=== PATIENT | male | born 1975 | race Caucasian/White ===

== ENCOUNTER → 2017-04-15 08:10 | Outpatient (CLI) | payer BC, SELFPAY ==
[2017-04-15 09:31] LABS: Alanine Aminotransferase 59 U/L (12-78); Albumin Level 4.6 gm/dL (3.4-5.0); Alkaline Phosphatase 76 U/L (46-116); Aspartate Amino Transferase 26 U/L (15-37); Bilirubin,Direct 0.1 mg/dL (0.0-0.2); Bilirubin,Total 0.5 mg/dL (0.2-1.0); Chol/HDL Ratio 2.2 (1-3.5); Cholesterol 100 mg/dL (140-200); HDL Cholesterol 45 mg/dL (27-67); LDL Cholesterol 48 mg/dL (0-130); Total Protein,Serum 7.8 gm/dL (6.4-8.2); Triglycerides 33 mg/dL (30-200); VLDL Cholesterol 7 mg/dL (0-40)
== END ==
PROVIDERS: PCP Family Medicine; Visit Provider Internal Medicine
DX: I45.10 Unspecified right bundle-branch block (principal); E78.5 Hyperlipidemia, unspecified; I10 Essential (primary) hypertension; I25.10 Atherosclerotic heart disease of native coronary artery without angina pectoris
CPT/HCPCS: 36415; 80061; 80076

== ENCOUNTER 2017-04-20 18:25 | Emergency (ER) | payer BC, SELFPAY ==
[2017-04-20 19:00] VITALS: BP 111/66; PULSE 120; RESP 18; TEMP 38; O2SAT 96; BMI 24.1
[2017-04-20 19:07] LABS: UTC Influenza A Antigen Positive (Negative); UTC Influenza B Antigen Negative (Negative); UTC Strep Screen (Rapid) Negative (Negative)
--- NOTE | 2017-04-20 19:38 | HMH.EDUTC ---
[facility] [place] Clinical Impression: Influenza Disposition: Home, Self-Care Condition on Discharge: Good Instructions: Influenza, DI for Fever (Symptom) -- Adult Additional Instructions: ? Start Tamiflu today if you are going to take it. Discussed risk and possible benefits. ? Lots of rest ? Increase Fluids water, Gatorade, powerade, pedialyte,if /toddler/child ? Alternate Tylenol and / or ibuprofen as discussed for fever, aches, chills x 24 hours without medication for symptoms ? Follow up IMMEDIATELY for new or worsening Symptoms OR no noticeable improvement over the next 48-72 hours, 911 for difficulty or breathing ? You or your child area contagious until no fever, aches, chills for 24 hours with medication for symptoms Prescriptions: Dextromethorphan Polistirex [Delsym] 10 ml PO Q12 PRN #200 clayton.er.12h PRN Reason: Cough Oseltamivir Phosphate [Tamiflu 75mg Capsule] 75 mg PO BID #10 cap Referrals: Jared Thibodeaux MD [Primary Care Provider] - Forms: Work/School Release Time of Disposition: 19:51 Medical Decision Making - Medical Records Medical records reviewed: Yes: I reviewed the patient's medical records. Vital Signs: 04/20/17 19:00 Temperature 100.4 F H Temperature Source Temporal Artery Scan Pulse Rate [Right] 120 H Respiratory Rate 18 Blood Pressure [Right Arm] 111/66 Blood Pressure Mean [Right Arm] 81 Blood Pressure Source [Right Arm] Automatic Cuff Blood Pressure Position [Right Arm] Sitting 02 Sat by Pulse Oximetry 96 Oxygen Delivery Method Room Air - Lab Data Lab Results 04/20/17 19:06: Influenza Type A Ag Positive A, Influenza Type B Ag Negative, Strep Scn Rapid Clinic Negative Orders (Tests/Meds): ORDERS Category Date Time Status Strep Screen Confirmation Stat Micro 04/20/17 19:06 Received - Rodriguez Inquiry Pt receiving controlled substance: No Rodriguez was queried for this patient: No [facility] [place] - General Stated complaint: Poss Sinus Infection Mode of Arrival: Ambulatory Source of Information: Patient Limitations: No Limitations Description of Symptoms (Recalled from Triage Doc. by RN): COUGH, CONGESTION, BODY ACHES 2 DAYS HEENT Symptoms (Recalled from RN notes): Yes Resp Symptoms (Recalled from RN notes): No Skin Symptoms (Recalled from RN notes): No MS Symptoms (Recalled from RN notes): No Functional Status (Recalled from RN notes): N - History of Present Illness Provider Complaint: Patient complaining of flu like symptoms that has continued to get worse since yesterday States that he has been having cough, congestion sore throat and body aches along with chills and over all not feeling well State that he was worried that may have the flu so she came in to get checked out - Related Data Home Medications Medication Instructions Recorded Confirmed Lisinopril [Lisinopril 10mg Tab] 20 mg PO DAILY 04/20/17 04/20/17 Metoprolol Tartrate [Lopressor 50 mg PO BID 04/20/17 04/20/17 50mg tablet] Previous Rx's Medication Instructions Recorded Dextromethorphan Polistirex 10 ml PO Q12 PRN #200 clayton.er.12h 04/20/17 [Delsym] Oseltamivir Phosphate [Tamiflu 75 mg PO BID #10 cap 04/20/17 75mg Capsule] Allergies Allergy/AdvReac Type Severity Reaction Status Date / Time No Known Allergies Allergy Verified 04/20/17 19:05 - Worker's Comp Is this a Worker's Comp case?: No [facility] History I have reviewed the patient's past medical history: Yes - *Social History Alcohol Intake: never - Psychiatric History Expresses thoughts of harming self/others: None Suicide Plan Description: No Plan ROS Obtained: Yes All systems reviewed & no additional complaints - Constitutional Constitutional: Reports body ache, Reports chills, Reports fever(s) - ENT Ears, Nose, Mouth, and Throat: Reports sore throat Physical Exam - General General appearance: alert, in no apparent distress - Expanded ENT Exam Comment: Throat red, i
--- NOTE | 2017-04-20 19:41 | ED_ITS ---
[facility] [place] Clinical Impression: Influenza Disposition: Home, Self-Care Condition on Discharge: Good Instructions: Influenza, DI for Fever (Symptom) -- Adult Additional Instructions: ? Start Tamiflu today if you are going to take it. Discussed risk and possible benefits. ? Lots of rest ? Increase Fluids water, Gatorade, powerade, pedialyte,if /toddler/child ? Alternate Tylenol and / or ibuprofen as discussed for fever, aches, chills x 24 hours without medication for symptoms ? Follow up IMMEDIATELY for new or worsening Symptoms OR no noticeable improvement over the next 48-72 hours, 911 for difficulty or breathing ? You or your child area contagious until no fever, aches, chills for 24 hours with medication for symptoms Prescriptions: Dextromethorphan Polistirex [Delsym] 10 ml PO Q12 PRN #200 clayton.er.12h PRN Reason: Cough Oseltamivir Phosphate [Tamiflu 75mg Capsule] 75 mg PO BID #10 cap Referrals: Jared Thibodeaux MD [Primary Care Provider] - Forms: Work/School Release Time of Disposition: 19:51 Medical Decision Making - Medical Records Medical records reviewed: Yes: I reviewed the patient's medical records. Vital Signs: 04/20/17 19:00 Temperature 100.4 F H Temperature Source Temporal Artery Scan Pulse Rate [Right] 120 H Respiratory Rate 18 Blood Pressure [Right Arm] 111/66 Blood Pressure Mean [Right Arm] 81 Blood Pressure Source [Right Arm] Automatic Cuff Blood Pressure Position [Right Arm] Sitting 02 Sat by Pulse Oximetry 96 Oxygen Delivery Method Room Air - Lab Data Lab Results 04/20/17 19:06: Influenza Type A Ag Positive A, Influenza Type B Ag Negative, Strep Scn Rapid Clinic Negative Orders (Tests/Meds): ORDERS Category Date Time Status Strep Screen Confirmation Stat Micro 04/20/17 19:06 Received - Rodriguez Inquiry Pt receiving controlled substance: No Rodriguez was queried for this patient: No [facility] [place] HPI - General Stated complaint: Poss Sinus Infection Mode of Arrival: Ambulatory Source of Information: Patient Limitations: No Limitations Description of Symptoms (Recalled from Triage Doc. by RN): COUGH, CONGESTION, BODY ACHES 2 DAYS HEENT Symptoms (Recalled from RN notes): Yes Resp Symptoms (Recalled from RN notes): No Skin Symptoms (Recalled from RN notes): No MS Symptoms (Recalled from RN notes): No Functional Status (Recalled from RN notes): N - History of Present Illness Provider Complaint: Patient complaining of flu like symptoms that has continued to get worse since yesterday States that he has been having cough, congestion sore throat and body aches along with chills and over all not feeling well State that he was worried that may have the flu so she came in to get checked out - Related Data Home Medications Medication Instructions Recorded Confirmed Lisinopril [Lisinopril 10mg Tab] 20 mg PO DAILY 04/20/17 04/20/17 Metoprolol Tartrate [Lopressor 50 mg PO BID 04/20/17 04/20/17 50mg tablet] Previous Rx's Medication Instructions Recorded Dextromethorphan Polistirex 10 ml PO Q12 PRN #200 clayton.er.12h 04/20/17 [Delsym] Oseltamivir Phosphate [Tamiflu 75 mg PO BID #10 cap 04/20/17 75mg Capsule] Allergies Allergy/AdvReac Type Severity Reaction Status Date / Time
== END 2017-04-20 20:03 | disposition home or self-care (01) ==
PROVIDERS: Emergency Provider Nurse Practitioner; Family Provider Family Medicine; PCP Family Medicine
DX: J10.1 Influenza due to other identified influenza virus with other respiratory manifestations (principal)
CPT/HCPCS: 87804; 87880; 99201

== ENCOUNTER → 2019-01-09 13:09 | Outpatient (CLI) | payer BC, SELFPAY ==
[2019-01-09 16:10] LABS: Alanine Aminotransferase 58 U/L (12-78); Albumin Level 4.3 gm/dL (3.4-5.0); Alkaline Phosphatase 66 U/L (46-116); Aspartate Amino Transferase 29 U/L (15-37); Bilirubin,Direct 0.1 mg/dL (0.0-0.2); Bilirubin,Indirect 0.4 mg/dL (0.0-0.9); Bilirubin,Total 0.5 mg/dL (0.2-1.0); Chol/HDL Ratio 2.7 (1-3.5); Cholesterol 130 mg/dL (140-200); Creatine Kinase 150 U/L (39-308); HDL Cholesterol 49 mg/dL (27-67); LDL Cholesterol 59 mg/dL (0-130); Total Protein,Serum 7.6 gm/dL (6.4-8.2); Triglycerides 112 mg/dL (30-200); VLDL Cholesterol 22 mg/dL (0-40)
== END ==
PROVIDERS: Visit Provider Physician Assistant
DX: E78.49 Other hyperlipidemia (principal); I25.10 Atherosclerotic heart disease of native coronary artery without angina pectoris; I11.9 Hypertensive heart disease without heart failure; I45.10 Unspecified right bundle-branch block
CPT/HCPCS: 36415; 80061; 80076; 82550

== ENCOUNTER → 2019-05-23 16:52 | Outpatient (CLI) | payer BC, SELFPAY ==
--- NOTE | 2019-05-23 | XR_ITS ---
PROCEDURE: XR KNEE RT 3V CLINICAL INDICATION: Right knee pain COMPARISON: No exams were available for comparison FINDINGS: No fracture or dislocation. No lytic or blastic change. There is normal mineralization. The joint spaces are well-preserved. No significant degenerative/arthritic changes. No erosive changes evident. Other findings:None. IMPRESSION: No acute findings. Dictated by: Lloyd Her MD 05/24/2019 05:20 Electronically signed by Lloyd Her MD in [place] 05/24/2019 05:20
== END ==
PROVIDERS: PCP Family Medicine; Visit Provider Physician Assistant
DX: M25.561 Pain in right knee (principal)
CPT/HCPCS: 73562

== ENCOUNTER → 2019-06-11 09:50 | Outpatient (CLI) | payer BC, SELFPAY ==
--- NOTE | 2019-06-11 09:54 | XR_ITS ---
PROCEDURE: XR KNEE RT 4V CLINICAL INDICATION: right knee pain COMPARISON: XR KNEE RT 3V from 05/23/2019 FINDINGS: No fracture or dislocation. No lytic or blastic change. There is normal mineralization. The joint spaces are well-preserved. No significant degenerative/arthritic changes. No erosive changes evident. Other findings:None. IMPRESSION: Negative right knee Dictated by: Lloyd Her MD 06/11/2019 10:59 Electronically signed by Lloyd Her MD in [place] 06/11/2019 10:59
== END ==
PROVIDERS: PCP Family Medicine; Visit Provider Orthopaedic Surgery
DX: M25.561 Pain in right knee (principal)
CPT/HCPCS: 73564

== ENCOUNTER → 2019-11-06 08:59 | Outpatient (CLI) | payer BC, SELFPAY ==
[2019-11-06 09:16] LABS: Basophils # 0.1 K/mm3 (0-0.2); Basophils % 1.3 % (0.1-2.0); Eosinophils # 0.3 K/mm3 (0.0-0.4); Eosinophils % 4.9 % (0.1-12.0); Lymphocytes % 44.8 % (10-50); Mean Corpuscular HGB Conc 33.3 g/dL (31.8-35.4); Mean Corpuscular Hemoglobin 30.2 pg (27.0-31.2); Mean Corpuscular Volume 90.5 fl (80-94); Mean Platelet Volume 7.9 fl (7.4-10.4); Monocytes # 0.4 K/mm3 (0.1-1.0); Monocytes % 6.4 % (1.7-9.3); Neutrophils # 2.8 K/mm3 (1.8-7.8); Neutrophils % 42.6 % (37.0-80.0); Platelet Count 235 K/mm3 (142-424); Red Blood Count 5.31 M/mm3 (4.60-6.20); Red Cell Distribution Width 12.6 % (11.5-17.5); White Blood Count 6.7 K/mm3 (4.8-10.8)
[2019-11-06 09:37] LABS: Chloride 103 mmol/L (98-107); Potassium 4.2 mmoL/L (3.5-5.1); Sodium 142 mmol/L (136-145)
[2019-11-06 09:39] LABS: Blood Urea Nitrogen 17 mg/dl (9-20); Estimated Glomerular Filt Rate 105 ml/min (>60); GFR (African American) 126 ML/MIN (>60)
[2019-11-06 09:40] LABS: Alanine Aminotransferase 62 U/L (12-78); Albumin Level 4.5 g/dl (3.5-5.0); Alkaline Phosphatase 73 U/L (38-126); Anion Gap 14.2 mEq/L (5-15); Aspartate Amino Transferase 48 U/L (17-59); Bilirubin,Indirect 0.6 mg/dL (0.0-0.9); Bilirubin,Total 0.6 mg/dl (0.2-1.3); Bilirubin,Unconjugated 0.6 mg/dL (0.0-1.1); Calcium 9.8 mg/dl (8.4-10.2); Carbon Dioxide 29 mmol/L (22.0-30.0); Chol/HDL Ratio 2.4 (1-3.5); Cholesterol 130 mg/dl (140-200); Glucose 114 mg/dl (74-100); HDL Cholesterol 54 mg/dl (40-60); Total Protein,Serum 7.4 g/dl (6.3-8.2); Triglycerides 69 mg/dl (30-150); VLDL Cholesterol 14 mg/dL (0-40)
[2019-11-06 09:51] LABS: Direct LDL Cholesterol 71.81 mg/dL (100-129)
[2019-11-06 09:56] LABS: Free T4 (Free Thyroxine) 0.84 ng/dl (0.78-2.19)
[2019-11-06 10:11] LABS: Thyroid Stimulating Hormone 1.57 uIU/mL (0.465-4.68)
== END ==
PROVIDERS: Visit Provider Urology
DX: E78.5 Hyperlipidemia, unspecified (principal); I11.9 Hypertensive heart disease without heart failure; I25.10 Atherosclerotic heart disease of native coronary artery without angina pectoris; I45.10 Unspecified right bundle-branch block; R07.9 Chest pain, unspecified; R42 Dizziness and giddiness
CPT/HCPCS: 36415; 80048; 80061; 80076; 84439; 84443; 85025

== ENCOUNTER → 2020-04-09 15:19 | Outpatient (CLI) | payer BC, SELFPAY ==
[2020-04-09 15:51] LABS: Basophils # 0.1 K/mm3 (0-0.2); Basophils % 1.9 % (0.1-2.0); Eosinophils % 0.8 % (0.1-12.0); Hematocrit 49.3 % (42.0-52.0); Hemoglobin 16.6 g/dL (14.1-18.0); Lymphocytes # 1.6 K/mm3 (0.7-4.5); Lymphocytes % 29.4 % (10-50); Mean Corpuscular HGB Conc 33.6 g/dL (31.8-35.4); Mean Corpuscular Hemoglobin 30.1 pg (27.0-31.2); Mean Corpuscular Volume 89.7 fl (80-94); Mean Platelet Volume 7.8 fl (7.4-10.4); Monocytes # 0.9 K/mm3 (0.1-1.0); Monocytes % 15.9 % (1.7-9.3); Neutrophils # 2.8 K/mm3 (1.8-7.8); Neutrophils % 52.1 % (37.0-80.0); Platelet Count 258 K/mm3 (142-424); Red Cell Distribution Width 12.8 % (11.5-17.5); White Blood Count 5.4 K/mm3 (4.8-10.8)
[2020-04-11 09:56] LABS: Covid-19 Nasal PCR Sendout P&C POSITIVE
== END ==
PROVIDERS: PCP Family Medicine; Visit Provider Nurse Practitioner Family
DX: U07.1 COVID-19 (principal)
CPT/HCPCS: 36415; 85025; U0004

== ENCOUNTER → 2020-04-17 15:18 | Outpatient (CLI) | payer BC, SELFPAY ==
--- NOTE | 2020-04-17 15:38 | XR_ITS ---
PROCEDURE: XR CHEST PORTABLE CLINICAL HISTORY: COVID OUTPATIENT COMPARISON: CR CXR1 CHEST-PORTABLE from 10/20/2014 CR CXR2V XR chest 2V from 05/23/2018 FINDINGS: The cardiomediastinal silhouette and pulmonary vascularity are within normal limits. Subtle patchy ground-glass infiltrate is present over the lower lung zones on both sides. No acute bony abnormalities. IMPRESSION: Subtle patchy ground-glass infiltrates overlying both lower lobe suspicious for Covid19 pneumonia Dictated by: Lloyd Her MD 04/17/2020 18:00 Lloyd Her MD in [place] 04/17/2020 18:00
[2020-04-17 16:05] LABS: Basophils % 0.6 % (0.1-2.0); Eosinophils % 0.1 % (0.1-12.0); Hematocrit 48.9 % (42.0-52.0); Hemoglobin 16.5 g/dL (14.1-18.0); Lymphocytes % 34.5 % (10-50); Mean Corpuscular HGB Conc 33.7 g/dL (31.8-35.4); Mean Corpuscular Hemoglobin 29.7 pg (27.0-31.2); Mean Corpuscular Volume 88.2 fl (80-94); Mean Platelet Volume 8.2 fl (7.4-10.4); Monocytes # 0.4 K/mm3 (0.1-1.0); Monocytes % 7.7 % (1.7-9.3); Neutrophils # 3.3 K/mm3 (1.8-7.8); Neutrophils % 57.1 % (37.0-80.0); Platelet Count 203 K/mm3 (142-424); Red Blood Count 5.54 M/mm3 (4.60-6.20); Red Cell Distribution Width 12.8 % (11.5-17.5); White Blood Count 5.7 K/mm3 (4.8-10.8)
== END ==
PROVIDERS: PCP Family Medicine; Visit Provider Physician Assistant
DX: Z20.822 Contact with and (suspected) exposure to COVID-19 (principal); U07.1 COVID-19
CPT/HCPCS: 36415; 71045; 85025

== ENCOUNTER → 2020-05-06 09:28 | Outpatient (CLI) | payer BC, SELFPAY ==
[2020-05-06 10:12] LABS: Chloride 105 mmol/L (98-107); Potassium 4.3 mmoL/L (3.5-5.1); Sodium 141 mmol/L (136-145)
[2020-05-06 10:14] LABS: Bilirubin,Unconjugated 1.1 mg/dL (0.0-1.1); Blood Urea Nitrogen 16 mg/dl (9-20); Estimated Glomerular Filt Rate 91 ml/min (>60); GFR (African American) 110 ML/MIN (>60)
[2020-05-06 10:15] LABS: Alanine Aminotransferase 64 U/L (12-78); Albumin Level 4.6 g/dl (3.5-5.0); Alkaline Phosphatase 83 U/L (38-126); Anion Gap 10.3 mEq/L (5-15); Aspartate Amino Transferase 39 U/L (17-59); Bilirubin,Indirect 1.1 mg/dL (0.0-0.9); Bilirubin,Total 1.1 mg/dl (0.2-1.3); Calcium 9.8 mg/dl (8.4-10.2); Carbon Dioxide 30 mmol/L (22.0-30.0); Chol/HDL Ratio 3.1 (1-3.5); Cholesterol 176 mg/dl (140-200); Glucose 113 mg/dl (74-100); HDL Cholesterol 56 mg/dl (40-60); Total Protein,Serum 7.8 g/dl (6.3-8.2); Triglycerides 130 mg/dl (30-150); VLDL Cholesterol 26 mg/dL (0-40)
[2020-05-06 10:28] LABS: Direct LDL Cholesterol 94.32 mg/dL (100-129)
== END ==
PROVIDERS: Visit Provider Physician Assistant
DX: E78.5 Hyperlipidemia, unspecified (principal); I11.9 Hypertensive heart disease without heart failure; Z79.899 Other long term (current) drug therapy
CPT/HCPCS: 36415; 80048; 80061; 80076

== ENCOUNTER → 2021-03-26 13:16 | Outpatient (CLI) | payer BC, SELFPAY ==
[2021-03-26 13:55] LABS: Basophils # 0.1 K/mm3 (0-0.2); Basophils % 1.9 % (0.1-2.0); Eosinophils # 0.2 K/mm3 (0.0-0.4); Eosinophils % 2.4 % (0.1-12.0); Hematocrit 49.1 % (42.0-52.0); Hemoglobin 15.6 g/dL (14.1-18.0); Lymphocytes # 2.7 K/mm3 (0.7-4.5); Lymphocytes % 39.4 % (10-50); Mean Corpuscular HGB Conc 31.7 g/dL (31.8-35.4); Mean Corpuscular Hemoglobin 29.6 pg (27.0-31.2); Mean Corpuscular Volume 93.4 fl (80-94); Mean Platelet Volume 8.2 fl (7.4-10.4); Monocytes # 0.5 K/mm3 (0.1-1.0); Monocytes % 6.9 % (1.7-9.3); Neutrophils # 3.4 K/mm3 (1.8-7.8); Neutrophils % 49.5 % (37.0-80.0); Platelet Count 312 K/mm3 (142-424); Red Blood Count 5.26 M/mm3 (4.60-6.20); Red Cell Distribution Width 12.9 % (11.5-17.5); White Blood Count 6.9 K/mm3 (4.8-10.8)
[2021-03-26 14:31] LABS: Alanine Aminotransferase 40 U/L (12-78); Alkaline Phosphatase 67 U/L (38-126); Anion Gap 15.4 mEq/L (5-15); Aspartate Amino Transferase 36 U/L (17-59); Bilirubin,Direct 0.2 mg/dl (0.0-0.4); Bilirubin,Indirect 0.6 mg/dL (0.0-0.9); Bilirubin,Total 0.8 mg/dl (0.2-1.3); Bilirubin,Unconjugated 0.6 mg/dL (0.0-1.1); Blood Urea Nitrogen 24 mg/dl (9-20); Carbon Dioxide 29 mmol/L (22.0-30.0); Chloride 101 mmol/L (98-107); Chol/HDL Ratio 2.6 (1-3.5); Cholesterol 120 mg/dl (140-200); Estimated Glomerular Filt Rate 90 ml/min (>60); GFR (African American) 109 ML/MIN (>60); Glucose 118 mg/dl (74-100); HDL Cholesterol 47 mg/dl (40-60); Potassium 4.4 mmoL/L (3.5-5.1); Sodium 141 mmol/L (136-145); Total Protein,Serum 7.5 g/dl (6.3-8.2); Triglycerides 101 mg/dl (30-150); VLDL Cholesterol 20 mg/dL (0-40)
[2021-03-26 14:42] LABS: Direct LDL Cholesterol 58.78 mg/dL (100-129)
[2021-03-26 14:47] LABS: Free T4 (Free Thyroxine) 0.95 ng/dl (0.78-2.19)
[2021-03-26 15:02] LABS: Thyroid Stimulating Hormone 1.12 uIU/mL (0.465-4.68)
== END ==
PROVIDERS: Visit Provider Nurse Practitioner Family
DX: Z01.812 Encounter for preprocedural laboratory examination (principal); Z11.52 Encounter for screening for COVID-19; I11.9 Hypertensive heart disease without heart failure; I25.10 Atherosclerotic heart disease of native coronary artery without angina pectoris; E78.49 Other hyperlipidemia
CPT/HCPCS: 36415; 80048; 80061; 80076; 84439; 84443; 85025; C9803; U0003; U0005

== ENCOUNTER 2021-03-27 09:53 | Day surgery (SDC) | payer BC, SELFPAY ==
[2021-03-27] VITALS (12 sets, daily range): BP systolic 91–142; BP diastolic 49–90; PULSE 52–72; RESP 16–19; TEMP 36.8; O2SAT 92–98; BMI 23.8
--- NOTE | 2021-03-27 07:13 | IR_ITS ---
APPROVED REPORT Patient Location: Outpatient PROCEDURES Left heart catheterization Left ventriculogram Selective coronary angiogram INDICATION Known coronary artery disease, Angina pectoris, History of coronary stenting Informed consent was obtained prior to the procedure. COMPLICATIONS None Estimated Blood Loss: Less than 10 ML TECHNIQUE One percent lidocaine used to anesthetize the right anterior aspect of the wrist. The right radial artery was accessed via the Seldinger technique. A 6 German sheath was placed in the right radial artery. 2.5 mg of verapamil, 800 mcg of nitroglycerin, 1mg Lidocaine and 5000 U Heparin were given through the arterial sheath. The Dazopa catheter was also used to perform left heart catheterization, left ventriculogram and selective coronary angiogram. At the end of the procedure the sheath was removed good hemostasis was achieved using Traclet band, patient was transferred to the postop holding area in stable condition. ANGIOGRAPHIC RESULTS The left main artery Normal The left anterior descending artery Has a stent in the proximal segment which is widely patent free of in-stent restenosis with excellent proximal distal transitioning. The remaining LAD is widely patent The circumflex artery Nondominant normal The right coronary artery Large dominant with a mid vessel 20% stenosis The SCHAFFER ventriculogram reveals Normal 65% The left ventricular end-diastolic pressure 10 mmHg IMPRESSION Widely patent proximal LAD stent Mild nonflow limiting mid dominant right coronary artery stenosis Normal ejection fraction with normal LVEDP PLAN 1. Evaluation of noncardiac symptoms 2. Continued standard therapy for ischemic heart disease Electronically signed by : Eddie Boyer MD 03/27/2021 14:03:42
--- NOTE | 2021-03-27 12:59 | SUR.PREOP ---
Pt updated on delay of procedure d/t emergency heart cath from patient on the floor
== END 2021-03-27 16:48 | disposition home or self-care (01) ==
LOC: CATHLAB 09:55
PROVIDERS: PCP Family Medicine; Visit Provider Internal Medicine
DX: I25.118 Atherosclerotic heart disease of native coronary artery with other forms of angina pectoris (principal); I45.10 Unspecified right bundle-branch block; Z95.5 Presence of coronary angioplasty implant and graft; I11.9 Hypertensive heart disease without heart failure; Z79.899 Other long term (current) drug therapy
CPT/HCPCS: 93458; 99152; C1725; C1769; J1644; Q9967

== ENCOUNTER 2021-06-28 09:37 | Emergency (ER) | payer BC, SELFPAY ==
[2021-06-28 10:29] VITALS: BP 122/78; PULSE 81; RESP 20; TEMP 36.7; O2SAT 97; BMI 25.1
--- NOTE | 2021-06-28 10:33 | HMH.EDUTC ---
[facility] [place]: Conjunctivitis, left eye Qualifiers: Conjunctivitis type: unspecified Qualified Code(s): H10.9 - Unspecified conjunctivitis Disposition: Home, Self-Care Condition on Discharge: Good Instructions: How to Instill Eye Drops, DI for Conjunctivitis Additional Instructions: Use the eye drops as directed. Follow up with your regular doctor. Follow up with an eye doctor. GO TO THE ER FOR ANY WORSENING SYMPTOMS Prescriptions: Ibuprofen [Ibuprofen 800mg Tablet] 800 mg PO Q8HP PRN #30 tab PRN Reason: Moderate Pain Transmission Status: Received by [facility] #[id number] Sulfacetamide Sodium [Bleph-10] 1 drp EYE-BOTH Q3H 7 Days #1 ml Transmission Status: Received by [facility] #[id number] Referrals: Jared Thibodeaux MD [Primary Care Provider] - Time of Disposition: 10:48 Medical Decision Making - Medical Records Medical records reviewed: No: I reviewed the patient's medical records. - Rodriguez Inquiry Pt receiving controlled substance: No Vital Signs: 06/28/21 10:29 06/28/21 10:54 Temperature 98.1 F 98.1 F Temperature Source Oral Pulse Rate 81 Pulse Rate [Left] 81 Respiratory Rate 20 20 Blood Pressure 122/78 Blood Pressure [Right Arm] 122/78 Blood Pressure Mean [Right Arm] 92 02 Sat by Pulse Oximetry 97 Orders (Tests/Meds): ED MEDICATIONS Discontinued Medications Generic Name Dose Route Start Last Admin Trade Name Freq PRN Reason Stop Dose Admin Eye Irrigation Solution 120 ml 06/28/21 10:44 06/28/21 10:47 Eye Wash Irrigation Soln 118ml Bottle OP 06/28/21 10:45 40 ml ONCE ONE Administration Tetracaine HCl 0 ml 06/28/21 10:44 06/28/21 10:47 Tetracaine 0.5% Opth Romy 15ml OP 06/28/21 10:45 2 drops ONCE ONE Administration [facility] [place] - General Stated complaint: lt eye pain 06/26 Time Seen by Provider: 06/28/21 10:33 Mode of Arrival: Ambulatory Source of Information: Patient Limitations: No Limitations Description of Symptoms (Recalled from Triage Doc. by RN): pt c/o swelling and irritation in his L eye x2 days. HEENT Symptoms (Recalled from RN notes): Yes Resp Symptoms (Recalled from RN notes): No Skin Symptoms (Recalled from RN notes): No MS Symptoms (Recalled from RN notes): No Functional Status (Recalled from RN notes): wnl - History of Present Illness Provider Complaint: He states that for the past 2 days, he has had left eye irritation. He was changing his son's brakes on his car before this started, but he was wearing eye protection and did not feel anything get into his eye. His tetanus immunization is up to date. - Related Data Home Medications Medication Instructions Recorded Confirmed aspirin 81 mg tablet,delayed 81 mg PO DAILY tab 07/04/17 04/06/21 release Atorvastatin Calcium [Lipitor 40mg See Rx Instructions .ROUTE .COMPLEX 03/27/21 04/06/21 Tab] lisinopriL [Lisinopril] 5 mg PO DAILY 03/27/21 04/06/21 Previous Rx's Medication Instructions Recorded metoprolol succinate 50 mg 50 mg PO DAILY #90 tab 04/14/21 tablet,extended release 24 hr Ibuprofen [Ibuprofen 800mg 800 mg PO Q8HP PRN #30 tab 06/28/21 Tablet] Sulfacetamide Sodium [Bleph-10] 1 drp EYE-BOTH Q3H 7 Days #1 ml 06/28/21 Allergies Allergy/AdvReac Type Severity Reaction Status Date / Time No Known Allergies Allergy Verified 04/06/21 09:42 - Worker's Comp Is this a Worker's Comp case?: No [facility] History - Hepatitis A Screen Drug use history?: No High risk sexual behaviors?: No History of sexually transmitted infection?: No Currently employed?: No Childcare worker?: No Do you have indoor plumbing?: Yes Do you have electricity?: Yes Attestation statement:: This patient has been screened for Hepatitis A risk factors. I have reviewed the patient's past medical history: Yes Medical History: Reports:: Anxiety, Coronary Artery Disease, Gastroesophageal Reflux Disease(GERD), Hyp
[2021-06-28 10:54] VITALS: BP 122/78; PULSE 81; RESP 20; TEMP 36.7
== END 2021-06-28 10:55 | disposition home or self-care (01) ==
PROVIDERS: Emergency Provider Nurse Practitioner Family; PCP Family Medicine
DX: H10.9 Unspecified conjunctivitis (principal); R94.31 Abnormal electrocardiogram [ECG] [EKG]; R42 Dizziness and giddiness; R07.9 Chest pain, unspecified; R00.2 Palpitations; Z79.82 Long term (current) use of aspirin; Z79.899 Other long term (current) drug therapy
CPT/HCPCS: 99213; G0463

== ENCOUNTER 2023-11-02 10:44 | Day surgery (SDC) | payer BC, SELFPAY ==
[2023-11-02] VITALS (12 sets, daily range): BP systolic 88–147; BP diastolic 45–79; PULSE 55–64; RESP 16–20; O2SAT 95–100; BMI 23.8
--- NOTE | 2023-11-02 07:19 | IR_ITS ---
APPROVED REPORT Patient Location: Outpatient Retail Advertising Sales Manager: MONAE Lira RT (R) PROCEDURES Left heart catheterization Left ventriculogram Selective coronary angiogram INDICATION History of myocardial infarction, History of coronary artery stenting, Informed consent was obtained prior to the procedure. COMPLICATIONS None Estimated Blood Loss: Less than 10 mls TECHNIQUE One percent lidocaine used to anesthetize the right anterior aspect of the wrist. The right radial artery was accessed via the Seldinger technique. A 6 Kyrgyz sheath was placed in the right radial artery. 2.5 mg of Verapamil, 800 mcg of nitroglycerin, 1mg Lidocaine and 5000 U Heparin were given through the arterial sheath. The papa catheter was also used to perform left heart catheterization, left ventriculogram and selective coronary angiogram. At the end of the procedure the sheath was removed good hemostasis was achieved using Traclet band, patient was transferred to the postop holding area in stable condition. ANGIOGRAPHIC RESULTS The left main artery Normal The left anterior descending artery Has a proximal 10% stenosis immediately proximal to the proximal LAD stent which is widely patent free of in-stent restenosis with excellent distal transitioning. The remaining LAD is widely patent The circumflex artery Normal The right coronary artery Dominant normal The SCHAFFER ventriculogram reveals Slightly reduced to 50% with mild anterior wall hypokinesis The left ventricular end-diastolic pressure 10 to 15 mmHg IMPRESSION Widely patent coronary arteries as described above Slightly reduced ejection fraction with mild regional wall motion abnormality Normal LVEDP PLAN 1. Medical management with aggressive risk factor modification Electronically signed by : Eddie Boyer MD 11/02/2023 12:17:56
[2023-11-02 11:15] LABS: Basophils # 0.2 K/mm3 (0-0.2); Basophils % 2.7 % (0.1-2.0); Eosinophils # 0.1 K/mm3 (0.0-0.4); Hematocrit 46.4 % (42.0-52.0); Lymphocytes # 2.9 K/mm3 (0.7-4.5); Lymphocytes % 49.3 % (10-50); Mean Corpuscular HGB Conc 32.3 g/dL (31.8-35.4); Mean Corpuscular Hemoglobin 30.2 pg (27.0-31.2); Mean Corpuscular Volume 93.5 fl (80-94); Mean Platelet Volume 7.7 fl (7.4-10.4); Monocytes # 0.5 K/mm3 (0.1-1.0); Monocytes % 8.3 % (1.7-9.3); Neutrophils # 2.2 K/mm3 (1.8-7.8); Neutrophils % 37.6 % (37.0-80.0); Platelet Count 266 K/mm3 (142-424); Red Blood Count 4.97 M/mm3 (4.60-6.20); Red Cell Distribution Width 13.6 % (11.5-17.5); White Blood Count 5.8 K/mm3 (4.8-10.8)
[2023-11-02 11:16] LABS: Chloride 105 mmol/L (98-107); Potassium 4.1 mmoL/L (3.5-5.1); Sodium 139 mmol/L (136-145)
[2023-11-02 11:19] LABS: Anion Gap 7.1 mEq/L (5-15); Blood Urea Nitrogen 18 mg/dl (9-20); Calcium 9.1 mg/dl (8.4-10.2); Carbon Dioxide 31 mmol/L (22.0-30.0); Creatinine Clearance Estimated 82 mL/min (50-200); Estimated Glomerular Filt Rate 64 ml/min (>60); GFR (African American) 78 ML/MIN (>60); Glucose 99 mg/dl (74-100)
[2023-11-02] MEDS: LIDOCAINE 1% 10ML MDV 20 ML IJ (11:26)
[2023-11-02] MEDS: HEPARIN 1,000 UNITS/ML 10ML VIAL (CATH LAB) 10000 UNIT IV (11:27)
[2023-11-02] MEDS: NITROGLYCERIN 800MCG/8ML SYR (CATH LAB) 800 MCG IA (11:27)
[2023-11-02] MEDS: 0.9 % SODIUM CHLORIDE 500 ML 25 ML IV (11:27)
[2023-11-02] MEDS: VERAPAMIL 2.5MG/ML 2ML VIAL 2.5 MG IV (11:27)
[2023-11-02] MEDS: HEPARIN 1,000 UNITS/500ML NS (CATH LAB) 3000 UNIT IV (11:27)
[2023-11-02] MEDS: diphenhydrAMINE 50MG/ML VIAL 50 MG IV (11:28)
[2023-11-02] MEDS: MIDAZOLAM HCL 1MG/1ML 5ML VIAL 1 MG IV ×2 (11:57→12:11)
[2023-11-02] MEDS: FENTANYL 100MCG/2ML VIAL 50 MCG IV (11:57)
[2023-11-02] MEDS: FENTANYL 100MCG/2ML VIAL 25 MCG IV (12:11)
[2023-11-02] MEDS: IOPAMIDOL-370 (76%);100ML BOTTLE 50 ML IV (13:25)
== END 2023-11-02 15:10 | disposition home or self-care (01) ==
PROVIDERS: PCP Family Medicine; Visit Provider Internal Medicine
DX: I25.118 Atherosclerotic heart disease of native coronary artery with other forms of angina pectoris (principal); Z95.5 Presence of coronary angioplasty implant and graft; I25.2 Old myocardial infarction; Z79.899 Other long term (current) drug therapy; R94.31 Abnormal electrocardiogram [ECG] [EKG]; I11.9 Hypertensive heart disease without heart failure; E78.5 Hyperlipidemia, unspecified
CPT/HCPCS: 36415; 80048; 85025; 93458; 99152; C1725; C1769; J1200; J1644; J2250; J3010; Q9967

== ENCOUNTER 2023-11-24 13:00 | Outpatient (CLI) | payer BC, SELFPAY ==
--- NOTE | 2023-11-24 13:08 | CA_ITS ---
APPROVED REPORT EXAM: Comprehensive 2D, Doppler, and color-flow Echocardiogram [employer] Delivery Driver: Zandra Bonilla RDCS Ht: 5 ft 11 in Wt: 174lbs BSA: 1.99 BP: 128/69 mmHg Indications: CP,ABN EKG,DIZZINESS,PALPS M-Mode Dimensions RVDd 1.89 cm (0.9-2.6) LA Diam 3.31 cm (1.9-4.0) LVDd 4.90 cm (3.5-5.7) LVDs 3.94 cm (3.5-5.7) IVSd 0.84 cm (0.6-1.1) PWd 0.68 cm (0.6-1.1) EF (Teich) 40.20% FS 19.60% EDV (Teich) 112.80 mL TAPSE 2.38 (<1.7) ESV (Teich) 67.50 mL LV Diastology E Decel Time 233 (160-240 msec) E/A Ratio 1.1 Mitral Valve MV E Max Andrea. 67.0 (40-130 cm/s) MV A Velocity 59.0 (40-130 cm/s) E/A Ratio 1.15 MV PHT 68.0 ms Left Ventricle The left ventricle is normal size. The left ventricular systolic function is low normal. There is normal left ventricular wall thickness. There is normal LV segmental wall motion. The left ventricular diastolic function is normal. LVEF is 50%. Right Ventricle The right ventricle is normal size. The right ventricular systolic function is normal. Atria The left atrium size is normal. The right atrium size is normal. There is no Doppler evidence of interatrial shunt. Aortic Valve The aortic valve opens well. There is no aortic valvular stenosis. No aortic regurgitation is present. Mitral Valve The mitral valve is normal in structure. No evidence of mitral valve stenosis. Trace mitral regurgitation. Tricuspid Valve The tricuspid valve leaflets are thin and pliable. Trace tricuspid regurgitation. There is insufficient TR jet to estimate RVSP. Pulmonic Valve The pulmonary valve is normal in structure. Trace pulmonic regurgitation. Great Vessels The aortic root is normal in size. The ascending aorta is not well-visualized. IVC is normal in size and collapses >50% with inspiration. Pericardium There is no pericardial effusion. Other Information Study Quality: Adequate Conclusion Low normal LV systolic function (LVEF 50%). No significant valvular stenosis or regurgitation. In the setting of young age, presence of symptoms with low normal LV systolic function, further evaluation with cardiac MRI (cardiomyopathy protocol) to better evaluate LVEF is suggested. Electronically signed by : Kristina Damon MD 11/30/2023 11:23:50
== END 2023-11-24 23:59 | disposition home or self-care (01) ==
LOC: RT 13:01
PROVIDERS: PCP Family Medicine; Visit Provider Nurse Practitioner
DX: I11.9 Hypertensive heart disease without heart failure (principal); I25.10 Atherosclerotic heart disease of native coronary artery without angina pectoris; E78.2 Mixed hyperlipidemia; R94.31 Abnormal electrocardiogram [ECG] [EKG]; I45.10 Unspecified right bundle-branch block
CPT/HCPCS: 93306

== ENCOUNTER 2024-07-02 09:53 | Outpatient (CLI) | payer BC, SELFPAY ==
[2024-07-02 10:12] LABS: Basophils # 0.1 K/mm3 (0-0.2); Basophils % 1.2 % (0.1-2.0); Eosinophils # 0.2 K/mm3 (0.0-0.4); Eosinophils % 3.2 % (0.1-12.0); Hematocrit 51.9 % (42.0-52.0); Hemoglobin 16.6 g/dL (14.1-18.0); Lymphocytes # 2.2 K/mm3 (0.7-4.5); Mean Corpuscular Hemoglobin 28.6 pg (27.0-31.2); Mean Corpuscular Volume 89.3 fl (80-94); Mean Platelet Volume 9.1 fl (7.4-10.4); Monocytes # 0.7 K/mm3 (0.1-1.0); Monocytes % 9.7 % (1.7-9.3); Neutrophils # 4.3 K/mm3 (1.8-7.8); Neutrophils % 56.6 % (37.0-80.0); Nucleated Red Blood Cells # 0 10^3/uL; Nucleated Red Blood Cells % 0 %; Platelet Count 341 K/mm3 (142-424); Red Blood Count 5.81 M/mm3 (4.60-6.20); Red Cell Distribution Width 14.5 % (11.5-17.5); Red Cell Distribution Width-SD 47.1 fL; White Blood Count 7.5 K/mm3 (4.8-10.8)
[2024-07-02 10:34] LABS: Alanine Aminotransferase 40 U/L (12-78); Albumin Level 4.3 g/dl (3.5-5.0); Alkaline Phosphatase 68 U/L (38-126); Anion Gap 14.8 mEq/L (5-15); Aspartate Amino Transferase 41 U/L (17-59); Bilirubin,Direct 0.1 mg/dl (0.0-0.4); Bilirubin,Indirect 0.7 mg/dL (0.0-0.9); Bilirubin,Total 0.8 mg/dl (0.2-1.3); Bilirubin,Unconjugated 0.7 mg/dL (0.0-1.1); Blood Urea Nitrogen 15 mg/dl (9-20); Calcium 9.3 mg/dl (8.4-10.2); Carbon Dioxide 32 mmol/L (22.0-30.0); Chloride 101 mmol/L (98-107); Chol/HDL Ratio 2.2 (1-3.5); Cholesterol 95 mg/dl (140-200); Estimated Glomerular Filt Rate 79 ml/min (>60); GFR (African American) 96 ML/MIN (>60); Glucose 109 mg/dl (74-100); HDL Cholesterol 44 mg/dl (40-60); Magnesium 2.1 mg/dl (1.6-2.3); Potassium 4.8 mmoL/L (3.5-5.1); Sodium 143 mmol/L (136-145); Total Protein,Serum 7.6 g/dl (6.3-8.2); Triglycerides 41 mg/dl (30-150); VLDL Cholesterol 8 mg/dL (0-40)
[2024-07-02 10:46] LABS: Direct LDL Cholesterol 36.31 mg/dL (100-129)
[2024-07-02 10:51] LABS: Free T4 (Free Thyroxine) 0.94 ng/dl (0.78-2.19)
[2024-07-02 11:05] LABS: Thyroid Stimulating Hormone 0.02 uIU/mL (0.465-4.68)
== END 2024-07-02 23:59 | disposition home or self-care (01) ==
LOC: LAB 09:54
PROVIDERS: PCP Family Medicine; Visit Provider Nurse Practitioner Family
DX: I42.8 Other cardiomyopathies (principal); E78.2 Mixed hyperlipidemia; I11.9 Hypertensive heart disease without heart failure; I25.10 Atherosclerotic heart disease of native coronary artery without angina pectoris
CPT/HCPCS: 36415; 80048; 80061; 80076; 83735; 84439; 84443; 85025

== ENCOUNTER 2024-09-16 18:24 | Emergency (ER) | payer BC, SELFPAY ==
[2024-09-16 18:29] VITALS: BP 148/87; PULSE 72; O2SAT 100
[2024-09-16 18:32] VITALS: BP 148/87; PULSE 74; RESP 16; TEMP 36.6; O2SAT 99; BMI 24.4
--- OUTSIDE RECORDS SUMMARY | 2024-09-16 18:39 | XMS_ITS | Data Portability ---
Author Organization [facility] Address [address] [place] [address] Assessment No assessment recorded. Plan of Treatment Reminders Order Date Submit Date Provider Last Modified By Organization Details Last Modified Time Details Appointments None record ed. Lab None record ed. Referral None record ed. Procedures None record ed. Surgeries None record ed. Imaging None record ed. Medication Orders None record ed. Patient TargetsNo targets recorded. Patient InstructionsNo instructions recorded. Reason for Referral None Reported. Medical Equipment None Reported. Medications Name Sig Start Date Stop Date Status Note LastModified by Organization Details LastModified Time atorvastatin 40 mg tablet TAKE 1 TABLET BY MOUTH DAILY FOR CHOLESTEROL active Not Available Not Available Not Available ibuprofen 800 mg tablet TAKE 1 TABLET BY MOUTH EVERY 8 HOURS NEEDED FOR MODERATE PAIN active Not Available Not Available No t Available metoprolol succinate ER 50 mg tablet,exten ded release 24 hr TAKE 1 TABLET BY MOUTH DAILY FOR HIGH BLOOD PRESSURE active Not Available Not Available No t Available doxycycline monohydrate 100 mg tablet TAKE 1 TABLET BY MOUTH TWICE DAILY active Not Available Not Available No t Available sulfacetamid e sodium 10 % eye drops INSTILL 1 DROP IN BOTH EYES EVERY 3 HOURS FOR 7 DAYS active Not Available Not Available No t Available lisinopril 5 mg tablet TAKE 1 TABLET BY MOUTH DAILY active Not Available Not Available Not Available neomycin 3.5 mg/g-polymyx in B 10,000 unit/g-dexam eth 0.1 % eye oint APPLY SMALL AMOUNT ON BOTH EYELIDS UP TO TWICE DAILY active Not Available Not Available No t Available Sutab 1.479-0.188- 0.225 gram tablet As Directed active Not Available Not Available Not Available Vitals None Recorded Social History None recorded. Functional Status None recorded. Mental Status None recorded. Family History Nothing Reported. Medical History No medical history recorded. Past Encounters Encounter ID Performer Location Encounter Start Date Encounter Closed Date Diagnosis/Indication Diagnosis SNOMED-CT Code Diagnosis ICD10 Code Diagnosis Note [id number] [facility] [address] 06/21/2016 21:36:42 06/21/2016 21:36:42 [id number] LYNN FULTON MD SURGERY SCHEDULE [address] [place] [address] 10/20/2021 13:21:45 10/20/2021 13:29:19 Health Concerns Section Related Observation LastModified by Organization Detai ls LastModified Time None Recorded Concern Status LastModified by Organization Details LastModified Time None Recorded Advance Directives Directive None Recorded Payers Insurance Date Sequence Insurance Name Policy Number Policy Simental Covered Member ID Simental Member ID Guarantor Name 10/19/2021 1 [employer] [id number] Craig Akers [id number] Craig Akers
--- NOTE | 2024-09-16 18:59 | HMH.EDGENADL ---
Discharge Plan Disposition Patient Disposition: Home, Self-Care Prescriptions Prescriptions: No Action aspirin 81 mg tablet,delayed release (DR/EC) 81 mg PO DAILY magnesium 200 mg tablet 200 mg PO DAILY nitroglycerin [Nitrostat] 0.4 mg tablet, sublingual 0.4 mg sublingual Q5M Qty: 30 2RF Rx Instructions: do not exceed 3 doses per episode losartan 50 mg tablet 50 mg PO DAILY Qty: 30 5RF metoprolol succinate 50 mg tablet extended release 24 hr 50 mg PO DAILY Qty: 30 5RF ibuprofen 200 mg capsule 200 mg PO Q6H PRN multivitamin Tablet 1 tab PO DAILY atorvastatin 40 mg tablet 40 mg PO DAILY Qty: 90 3RF Referrals Follow up/Referrals: Kp Mccrary MD [Primary Care Provider, Medical] - See instructions Activity Restrictions/Add. Instructions Additional Instructions/Restrictions: Follow-up with your family doctor regarding this visit to the emergency department. If you start having redness, swelling, drainage, or signs of infection, return to the emergency department or your family doctor for evaluation. Clinical Impressions Clinical Impression: Fish hook in thumb Instructions Patient Instructions: DI for Skin Abscess Print Language Print Language: Icelandic Discharge ED Provider: Keyur Rios General Adult HPI General Chief complaint: Skin/Abscess/Foreign Body Stated complaint: fishing hook in rt thumb Time Seen by Provider: 09/16/24 18:26 Mode of Arrival: Ambulatory Source of Information: Patient Description of Symptoms (Recalled from ER Triage Doc. by RN): Patient states that about an hour and a half ago he got a fish hook stuck in his right thumb. History of Present Illness HPI narrative: Please note that above description of symptoms, in this electronic medical record under categorization of recalled from ER triage doctor by RN are reflective of an initial nursing assessment, however, is not reflective of my full history and physical exam that was personally taken and clarified. Consequentially, this preceding description of symptoms, which may include the patient's categorized chief complaint in the EMR, do not reflect my personal clinical impression, and the ultimate description of history of present illness and patient stated complaints should be deferred to this section of the note. Unless stated otherwise or congruent with this section of the note, additional signs, symptoms, or incongruence should be interpreted as inaccurate with my clinical impression. Related Data Home Medications ?Medication ?Instructions ?Recorded ?Confirmed aspirin 81 mg tablet,delayed 81 mg PO DAILY antiplatelet 07/04/17 07/02/24 release ibuprofen 200 mg capsule 200 mg PO Q6H PRN 12/28/22 07/02/24 multivitamin 1 tab PO DAILY 04/08/23 07/02/24 magnesium 200 mg tablet 200 mg PO DAILY 10/20/23 07/02/24 Previous Rx's ?Medication ?Instructions ?Recorded nitroglycerin 0.4 mg sublingual 0.4 mg sublingual Q5M #30 tabs 10/20/23 tablet (Nitrostat) atorvastatin 40 mg tablet 40 mg PO DAILY Cholesterol #90 tabs 03/20/24 losartan 50 mg tablet 50 mg PO DAILY #30 tabs 07/02/24 metoprolol succinate 50 mg 50 mg PO DAILY High blood pressure 07/02/24 tablet,extended release 24 hr #30 tabs Allergies Allergy/AdvReac Type Severity Reaction Status Date / Time No Known Allergies Allergy Verified 09/16/24 18:36 [facility] Disclaimer: The information contained in this section may have been updated after the patient was seen, as this information can be updated by other users. Medical History (Updated 09/16/24 @ 19:12 by Keyur Rios MD) Cough due to CEFERINO inhibitor Plantar fascial fibromatosis of left foot Abnormal EKG Dizziness Palpitations Chest pain Social History Smoking Status: Never smoker alcohol intake: never substance use type: denies use current occupational status: employed Travel in the last 8 weeks?: Inside the [place] household members: spouse housing: house current occupational exposures/hazards: No Have you lived/traveled outside US in past 30 days?: No Contact w/someone who lives/traveled outside US past 30 days?: No Exposure to someone with infectious disease in past 14 days?: No Do you have a fever (greater than 100.4 F or 38 C)?: No Have you tested positive for COVID-19?: No Exposed to someone with COVID-19 in past 14 days?: No Do you have a sore throat?: No Do you have a cough?: No Do you have any weakness?: No Do you have any diarrhea?: No Are you experiencing any unusual bleeding?: No Do you have any muscle aches/pain?: No Do you have any abdominal pain?: No Are you experiencing loss of taste or smell?: No Other Medical History Have you received the Flu Vaccine for this season: Yes Have you received the Pneumonia Vaccine: No ROS Obtained: Yes All systems reviewed & no additional complaints except as documented Physical Exam General General appearance: alert Head Head exam: atraumatic and normocephalic Eye Eye exam: Present normal appearance, PERRL and EOMI Neck Neck exam: Present normal inspection, full ROM and trachea midline Respiratory Respiratory exam: Absent respiratory distress, wheezes, stridor, accessory muscle use or prolonged expiratory phase Cardiovascular Cardiovascular exam: Present other (Pulses equal symmetric in upper and lower extremities) Abdominal Exam Abdominal exam: Present soft; Absent distention, tenderness or pulsatile mass Extremities Exam Extremities exam: Absent edema Neurological Exam Neurological exam: Present alert, oriented X3 and CN II-XII intact; Absent motor sensory deficit Skin Skin exam: Present warm and dry; Absent diaphoresis or erythema Medical Decision Making Medical Records Medical records reviewed: Yes I reviewed the patient's medical records. Screening: Per USPSTF and CDC recommendations, given the prevalence of disease in our region, it is our hospital?s policy to screen for HIV and viral Hepatitis for all patients aged 18 and over and those with ongoing risk factors. Rodriguez Inquiry Pt receiving controlled substance: No Rodriguez was queried for this patient: No Vital Signs: 09/16/24 18:29 09/16/24 18:32 Temperature 97.8 F Temperature Source Oral Pulse Rate 72 Pulse Rate [Right Brachial] 74 Respiratory Rate 16 Blood Pressure 148/87 H Blood Pressure [Right Arm] 148/87 H Blood Pressure Mean [Right Arm] 107 Blood Pressure Source [Right Arm] Automatic Cuff Blood Pressure Position [Right Arm] Sitting 02 Sat by Pulse Oximetry 100 99 Oxygen Delivery Method Room Air Room Air Orders (Tests/Meds): ED MEDICATIONS Discontinued Medications Generic Name Dose Route Start Last Admin Trade Name Freq PRN Reason Stop Dose Admin Lidocaine HCl 20 ml 09/16/24 18:33 Lidocaine 1% 20ml Mdv IJ 09/16/24 18:34 ONCE ONE Tetanus/Reduced Diphtheria/Acell Pertussis 0.5 ml 09/16/24 18:33 Tet/Diphth/Pert-Adult 0.5ml Syringe IM 09/16/24 18:34 .ONCE ONE Medical Decision Narrative: 48-year-old male presenting with fishhook. He states that he was fishing just before this, got a fishing hook in his right thumb. Does not member his last tetanus shot. Came in for further evaluation after trying to take it out himself. He cleaned out pretty well went home showered, etc. Mildly tender, throbbing. History obtained with patient. On exam, there is a 3 prong fishhook embedded in the distal phalanx soft tissues of his right thumb past the level of the shila. Patient was anesthetized with 1% lidocaine without epinephrine approximately 5 cc. Cutdown technique creating incision of 0.25 cm down to the hook. Hook was rotated using hemostats and removed manually. No evidence of broken pieces of metal, etc. Washed out extensively afterward. Patient given updated tetanus shot and discharged in hemodynamically stable condition after dressing wound. Editor Magazine disclaimer Much of this encounter note is an electronic manager registration spoken language to printed text. Electronic manager registration of the spoken language may permit errors. Although I have reviewed the note, some errors may still exist. Critical Care Critical Care Time Critical Care Time: No
[2024-09-16] MEDS: TET/DIPHTH/PERT-ADULT 0.5ML SYRINGE 0.5 ML IM (19:13)
[2024-09-16] MEDS: LIDOCAINE 1% 20ML MDV 20 ML IJ (19:13)
[2024-09-16 19:19] VITALS: BP 125/74; PULSE 75; RESP 16; TEMP 36.6; O2SAT 100
== END 2024-09-16 19:20 | disposition home or self-care (01) ==
PROVIDERS: Emergency Provider Emergency Medicine; PCP Family Medicine
DX: S60.351A Superficial foreign body of right thumb, initial encounter (principal); W45.8XXA Other foreign body or object entering through skin, initial encounter; Z23 Encounter for immunization
CPT/HCPCS: 10120; 90471; 90715; 99283; J2003

== ENCOUNTER 2025-03-12 15:11 | Outpatient (CLI) | payer BC, SELFPAY ==
--- OUTSIDE RECORDS SUMMARY | 2025-03-01 10:15 | XMS_ITS ---
Author Organization [facility] Address [address] [facility] 36 [facility] [address] [place] [id number] Care Team Providers Care Senior Analytic Consultant Name Role Phone Irma Thibodeaux Primary Care Provider [phone] Gilles Ernst Unavailable [phone] Allergies No Known Allergies REASON FOR VISIT rt knee pain Medications Medication SIG (Take, Route, Frequency, Duration) Notes Start Date End Date Status Lisinopril 5 MG 1 tab(s) orally once a day Not-Taking Atorvastatin Calcium 40 MG 1 tab(s) orally once a day Active Losartan Potassium 50 MG 1 tablet Orally Once a day Active Aspirin 81 MG 1 tablet Orally Once a day; Duration: 30 day(s) Active Metoprolol Succinate ER 50 MG 1 tab(s) orally once a day Active Sildenafil Citrate 20 MG 1 to 5 tab(s) o rally once daily as needed 01/18/2022 Not-Taking ProAir Digihaler 108 (90 Base) MCG/ACT 1-2 puff(s) inhaled every 6 hours, prn 04/18/2020 Not-Taking Ondansetron HCl 4 MG 1 tablet Orally jeanne ry 8 hours as needed 07/06/2023 Not-Taking Vital Signs Weight 182 lbs 03/01/2025 Blood pressure systolic 130 mm Hg 03/01/20 25 Blood pressure diastolic 70 mm Hg 025 Heart Rate 72 /min 03/01/2025 Height 71 in 03/01/2025 BMI 25.38 kg/m2 03/01/2025 Encounters Encounter Location Date Provider Diagnosis [facility] [address] [facility] [address] [place] [id number] 03/01/2025 Gilles Ernst Acute pain of right knee M25.561 and Effusion, right knee M25.461 Assessments Encounter Date Diagnosis (ICD Code) Assessment Notes Treatment Notes Treatment Clinical Notes Section Notes 03/01/2025 Acute pain of right knee (ICD-10 - M25.561) Rest, ice, compression and elevation OTC non aspirin NSAID of choice 03/01/2025 Effusion, right knee (ICD-10 - M25.461) Plan Of Treatment Treatment Notes Assessment Notes Acute pain of right knee Rest, ice, comp ression and elevation OTC non aspirin NSAID of choice Next Appt Details Follow Up: via phone to repo rt progress, Reason: Progress Notes * Craig AKERSDOB: [birth year] (49 yo M)Acc No.[id number]:03/01/2025 Progress Notes Patient: Craig ERVIN Provider: Digna Ernst M.D. :1975 A ge:49 Y S ex:Male Date:03/01/2025 Address:[address] [place] [address] , [facility], [id number] Pcp:Irma Thibodeaux Subjective: * Chief Complaints: * 1 . Rt knee pain. * HPI: K nee/Li: 49 year old male presents with c/o knee pain r ight side. Pt states it started two weeks ago. Pt states it is swollen and makes a popping sound. Pt states it feels like a sharp stabbing pain behind the knee. * Medical History: H ypertension, Dx: 2015, H Pylori, s/p treatment, Low back pain, Lumbar Degenerative Disc Disease, Coronary artery stent (Oct 2016), Covid Positive - Mar 31, 2020. * Surgical History: v asectomy . * Hospitalization/Major Diagno stic Procedure: H ER - chest pains 10/19-05/05, [facility] ER-congestion 06/04. * Family History: F ather: alive. M other: alive. P aternal Grand Father: alive. P aternal Grand Mother: alive. M aternal Grand Father: . M aternal Grand Mother: . 2 sister(s) - healthy. 1 son(s) , 1 daughter(s) - healthy. . * Social History: C URRENT TOBACCO USE: No S moking Status: Patient does NOT smoke. C affeine: yes, frequency:. Exercise: yes. Marital Status: . Past smoking status: yes, Smoking status: Patient does smoke. Recreational drug use: Past use:. Alcohol: Yes, Type: , Frequency: ,Years: , Determination:. * Medications: T aking Losartan Potassium 50 MG Tablet 1 tablet Orally Once a day , Taking Aspirin 81 MG Tablet Delayed Release 1 tablet Orally Once a day , Taking Metoprolol Succinate ER 50 MG Tablet Extended Release 24 Hour 1 tab(s) orally once a day , Taking Atorvastatin Calcium 40 MG Tablet 1 tab(s) orally once a day , Not-Taking Lisinopril 5 MG Tablet 1 tab(s) orally once a day , Not-Taking Ondansetron HCl 4 MG Tablet 1 tablet Orally every 8 hours as needed , Not-Taking Sildenafil Citrate 20 MG Tablet 1 to 5 tab(s) orally once daily as needed , Not-Taking ProAir Digihaler 108 (90 Base) MCG/ACT Aerosol Powder Breath Activated 1-2 puff(s) inhaled every 6 hours, prn , Medication List reviewed and reconciled with the patient * Allergies: N .K.D.A. Objective: * Vitals: W t: 182, Temp: 98.0, BP: 130/70, HR: 72, Nurse: STEFANI, Ht: 71, BMI:25.38. * Examination: G eneral Examination: General Appearance: N AD. K nee / Li: Knee: r ight. I nspection: e ffusion: mild. P alpation: n o tenderness on joint lines or collateral ligaments. C ollateral ligaments: i ntact medially and laterally. R caden of motion: n ormal flexion and extension. M cmurray: n egative. Assessment: * Assessment: 1. A cute pain of right knee - M25.561 (Primary) 2 . E ffusion, right knee - M25.461 Plan: * Treatment: * Follow Up: v ia phone to report progress * Images: Billing Information: * Visit Code: 73028 Office Visit, Est Pt., Level 3. * Procedure Codes: * Electronic signature of Renea Ernst MD on 03/12/2025 at 03:13 PM EST Sign off status: Pending * Provider: Digna Ernst M.D. Date: 05/02/2024 Generated for John ramey/Laura/Mauriceransmitting on: 05/13/2024 03:13 PM EST History and Physical Notes * HPI (History of Present Illness) Category Sub-Category Detail Notes Category Not es Knee/Li knee pain right side. Pt s tates it started two weeks ago. Pt states it is swollen and makes a popping sound. Pt states it feels like a sharp stabbing pain behind the knee Examination Category Sub-Category Detail Notes Category Not es General Examination General Appearance: NAD Knee / Li Brigitte: negative Palpation: no tenderness on abiodun nt lines or collateral ligaments Knee: right Inspection: effusion: mild Range of motion: normal flexion and e xtension Collateral ligaments: intact medially an d laterally
--- OUTSIDE RECORDS SUMMARY | 2025-03-12 04:13 | XMS_ITS ---
Author Organization [facility] Address [address] [facility] 36 [facility] [address] [place] [id number] Care Team Providers Care Ortho Rn Name Role Phone Irma Thibodeaux Primary Care Provider REASON FOR VISIT Needs order (LM) Encounters Encounter Location Date Provider Diagnosis [facility] [address] [facility] [address] [place] [phone] 03/12/2025 Irma Thibodeaux Pain, joint, knee, right M25.561 Assessments Encounter Date Diagnosis (ICD Code) Assessment Notes Treatment Notes Treatment Clinical Notes Section Notes 03/12/2025 Pain, joint, knee, right (ICD-10 - M25.561) Plan Of Treatment Pending Test Test Name Order Date X ray : Knee, right 03/12/2025 Progress Notes * Craig AKERSDOB: 4 (49 yo M)Acc No.[id number]:03/12/2025 Patient: Craig ERVIN :1975 A ge:49 Y S ex:Male Address:[address] [place] [address] [place] [address] Subjective: * Chief Complaints: * N eeds order (LM) * Medical History: * Surgical History: * Hospitalization/Major Diagno stic Procedure: * Medications: Objective: * Vitals: * Physical Examination: Assessment: * Assessment: 1. P ain, joint, knee, right - M25.561 (Primary) Plan: * Treatment: * Procedure Codes: * true * Date: Generated for Printi ng/Faxing/eTransmitting on: 1 05/13/2024 03:14 PM EST
--- OUTSIDE RECORDS SUMMARY | 2025-03-12 15:14 | XMS_ITS | Patient Health Record ---
Author [facility] [address] [facility] 36 [facility] [address] [id number] Care Team Providers Care Store Administrative Assistant Name Role Phone Irma Thibodeaux Primary Care Provider Gilles Ernst Unavailable [phone] Allergies No Known Allergies Reason For Referral No Information Medications Medication SIG (Take, Route, Frequency, Duration) Notes Start Date End Date Status Sildenafil Citrate 20 MG 1 to 5 tab(s) o rally once daily as needed 01/18/2022 Not-Taking ProAir Digihaler 108 (90 Base) MCG/ACT 1-2 puff(s) inhaled every 6 hours, prn 04/18/2020 Not-Taking Ondansetron HCl 4 MG 1 tablet Orally jeanne ry 8 hours as needed 07/06/2023 Not-Taking Lisinopril 5 MG 1 tab(s) orally once a day Not-Taking Atorvastatin Calcium 40 MG 1 tab(s) orally once a day Active Losartan Potassium 50 MG 1 tablet Orally Once a day Active Aspirin 81 MG 1 tablet Orally Once a day; Duration: 30 day(s) Active Metoprolol Succinate ER 50 MG 1 tab(s) orally once a day Active Immunizations Vaccine Route Administration Date Status Comme nts Fluzone Quad (6months&older) IM Intramuscular 12/21/2019 Administered Fluzone PF Quad (6-35 months) Unknown 12/21/2019 Administered Fluzone PF Quad (6-35 months) Unknown 01/29/2021 Administered COVID 19 Pfizer Unknown 10/28/2020 Administered Problems Problem Type SNOMED Code ICD Code Onset Dates Problem Status W/U Status Risk Notes Problem Essential hypertension (45828686) HTN [Hypertension] (401.9) Active confirmed Problem Essential hypertension (20360794) Essential (primary) hypertension (I10) Active confirmed Problem Essential hypertension (35406301) Essential hypertension (I10) Active confirmed Problem Generalized anxiety disorder (49747933) Generalized anxiety disorder (F41.1) Active confirmed Problem Paresthesia (finding) (45818503) Paresthesias (R20.2) Active confirmed Problem 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 Problem Erectile dysfunction (disorder) (465586294) Erectile dysfunction, unspecified erectile dysfunction type (N52.9) Active confirmed Vital Signs Heart Rate 72 /min 03/01/2025 Blood pressure diastolic 70 mm Hg 03/01/2025 Height 71 in 03/01/2025 Blood pressure systolic 130 mm Hg 03/01/2025 Weight 182 lbs 03/01/2025 BMI 25.38 kg/m2 03/01/2025 Encounters Encounter Location Date Provider [facility] [address] [id number] 03/01/2025 Gilles [place] Acute pain of right knee M25.561 and Effusion, right knee M25.461 [facility] [address] [facility] [address] [place] [id number] 03/12/2025 Irma Painterfleet Pain, joint, knee, right M25.561 Assessments Encounter Date Diagnosis (ICD Code) Assessment Notes Treatment Notes Treatment Clinical Notes Section Notes 03/01/2025 Effusion, right knee (ICD-10 - M25.461) 03/01/2025 Acute pain of right knee (ICD-10 - M25.561) Rest, ice, compression and elevation OTC non aspirin NSAID of choice 03/12/2025 Pain, joint, knee, right (ICD-10 - M25.561) Plan Of Treatment Pending Test Test Name Order Date X ray : Knee, right 03/12/2025 Insurance Providers Payer Name Payer Address Payer Phone Subscriber Number Group Number Insured Name Patient Relationship to Insured Coverage Start Date Coverage End Date [employer]A [address] [place] [address] [id number] Craig Akers Self - patient is the insured Medical (General) History Medical History History ICD Code Hypertension, Dx: 2014 H Pylori, s/p treatment low back pain Lumbar Degenerative Disc Disease Coronary artery stent (Oct 2016) Covid Positive - Mar 31, 2020 Surgical History Surgery Date(Month/Year) vasectomy Hospitalization History Reason Date(Month/Year) [facility] ER-congestion 06/04 [facility] ER - chest pains 10/19-05/05
--- OUTSIDE RECORDS SUMMARY | 2025-03-12 15:14 | XMS_ITS | Clinical Summary ---
Author Organization [facility] Address [address] [place] [address] Care Team Providers Care Glass Melt Operator Name Role Phone Gilles Ernst MD Primary Care Provider [phone] Allergies Active Allergy Reactions Criticality Noted Date Comments Meperidine 04/10/2015 Medications atorvastatin (LIPITOR) 40 MG tablet take 1 tablet by mouth once daily 0 7 Active lisinopril (PRINIVIL,ZESTR IL) 10 MG tablet 5 mg. 0 7 Active metoprolol succinate XL (TOPROL-XL) 50 MG 24 hr tablet 0 7 Active cyclobenzaprine (FLEXERIL) 10 MG tablet Take 10 mg by mouth 3 (Three) Times a Day As Needed for Muscle Spasms. Active aspirin 81 MG EC tablet Take 81 mg by mouth Daily. Active ibuprofen (ADVIL,MOTRIN) 800 MG tablet Take 800 mg by mouth Every 6 (Six) Hours As Needed for Mild Pain . Active Dietary Management Product (RHEUMATE) capsule Take 1 capsule once daily 90 capsule 1 9 Active acetaminophen (TYLENOL) 500 MG tablet Take one tablet by mouth four times a day as needed for mild to moderate breakthrough pain 120 tablet 5 9 Active pyridoxine (VITAMIN B-6) 25 MG tablet Take one tablet by mouth three times daily 90 tablet 5 9 Active Active Problems Problem Noted Date Diagnosed Date Presence of stent in coronary artery 04/19/2017 Lumbar disc disease with radiculopathy 8 Lumbar stenosis with neurogenic claudication Generalized anxiety disorder 04/18/2017 Family History Medical History Relation Name Comments No Known Problems Father No Known Problems Mother Relation Name Status Comments Father Mother Social History Tobacco Use Types Packs/Day Years Used Date Smoking Tobacco: Never Smokeless Tobacco: Never Comments:Quit in 1996 Alcohol Use Standard Drinks/Week Comments Yes 0 (1 standard drink = 0.6 oz pur e alcohol) Abuse Screen Answer Date Recorded Unsafe at Home or Work/School Not on file Feels Threatened by Someone? Not on file 01/2023 Does Anyone Keep You from Co ntacting Others or Doint Things Outside the Home? Not on file 12/29/2022 Physical Sign of Abuse Present Not on file 1 Housing Stability Answer Date Recorded Current Living Arrangements Not on file 12/19 Potentially Unsafe Housing Conditions Not on deniz e 12/29/2022 Family and Community Support Answer En e Recorded Help with Day-to-Day Activities Not on file 12/29/2022 Lonely or Isolated Not on file 12/29/2022 Employment Answer Date Recorded Do you want help finding or keeping work or a dayne b? Not on file 12/29/2022 Disabilities Answer Date Recorded Concentrating, Remembering, or Making Decisions Difficulty Not on file 12/29/2022 Doing Errands Independently Difficulty Not on fi le 12/29/2022 Education Answer Date Recorded Help with school or training? Not on file Preferred Language Not on file 12/29/2022 Sex and Gender Information Value Date Recorded Sex Assigned at Not on file Legal Sex Male 2:33 PM EST Gender Identity Not on file Sexual Orientation Not on file Last Filed Vital Signs Vital Sign Reading Time Taken Comments Blood Pressure 120/74 11/16/2018 2:44 PM EDT Pulse 64 02/16/2018 11:42 AM EST Temperature 36.4 C (97.5 F) 11/16/2018 2:44 PM EDT Respiratory Rate 18 02/16/2018 11:42 AM EST Oxygen Saturation 98% 02/16/2018 11:42 AM EST Inhaled Oxygen Concentration - - Weight 79.4 kg (175 lb) 11/16/2018 2:44 PM EDT Height 180.3 cm (5' 11 ) 11/16/2018 2:44 PM EDT Body Mass Index 24.41 11/16/2018 2:44 PM EDT Plan of Treatment Health Maintenance Due Date Last Done Comments TDAP/TD VACCINES (1 - Tdap) 1992 ANNUAL PHYSICAL 03/22/2017 HEPATITIS C SCREENING 03/22/2017 COLOGUARD 2018 COLON CANCER SCREENING 5 YEAR SIGMOIDOSCOPY 2018 COLONOSCOPY [address] CANCER SCREENING 2018 CT COLONOGRAPHY 2018 FECAL OCCULT BLOOD TEST 2018 FIT Testing (1 year) 2018 Pneumococcal Vaccine 50+ (1 of 1 - PCV) 12/15/2023 ZOSTER VACCINE (1 of 2) 12/15/2023 INFLUENZA VACCINE 10/19/2024 Insurance [place] [id number] [facility] PPO Care Teams Glass Melt Operator Relationship Specialty Start Date End Date Gilles Ernst MD [address] [place] [address] [place] [id number] PCP - General 01/22/15
--- NOTE | 2025-03-12 15:15 | XR_ITS ---
FINAL REPORT CLINICAL HISTORY: PAIN RIGHT KNEE JOINT FINDINGS: RIGHT KNEE Three views were obtained. There is no fracture or dislocation. The joint spaces appear normal. No soft tissue abnormality is identified. IMPRESSION: No acute process. Reviewed, Interpreted and Dictated by Kp Rodriguez MD Transcribed by Charla Rodgers Authenticated and [facility]
== END 2025-03-12 23:59 ==
LOC: RAD 15:12
PROVIDERS: PCP Family Medicine; Visit Provider Family Medicine
DX: M25.561 Pain in right knee (principal)
CPT/HCPCS: 73562